=== PATIENT | female | born 1970 | race Caucasian/White ===

== ENCOUNTER 2021-04-08 06:17 | Emergency (ER) | payer BC ==
[~2021-04-08] VITALS: Ht 177.8 cm; Wt 68.0 kg
[2021-04-08] MEDS ORDERED: TRAZ100 PO (06:48)
[2021-04-08] MEDS ORDERED: ESCI20 PO (06:48)
[2021-04-08] MEDS ORDERED: NEURONTIN300 MG PO (06:49)
[2021-04-08] MEDS ORDERED: GABA100 PO (06:50)
[2021-04-08 07:03] LABS: BASOPHILS ABSOLUTE AUTO 0.08 K/mm3 (0.00-0.23); BASOPHILS PERCENT AUTO 2 % (0-2); EOSINOPHILS ABSOLUTE AUTO 0.28 K/mm3 (0.00-0.68); EOSINOPHILS PERCENT AUTO 9 % (0-6); Hematocrit 39.1 % (33.0-51.0); Hemoglobin 12.7 g/dL (11.5-16.0); IMMATURE GRAN ABSOLUTE AUTO 0.01 K/mm3 (0.00-0.10); IMMATURE GRAN PERCENT AUTO 0 % (0-1); LYMPHOCYTES ABSOLUTE AUTO 1.18 K/mm3 (0.84-5.20); LYMPHOCYTES PERCENT AUTO 36 % (21-46); MONOCYTES ABSOLUTE AUTO 0.43 K/mm3 (0.16-1.47); MONOCYTES PERCENT AUTO 13 % (4-13); Mean Corpuscular HGB 28.8 pg (26.0-34.0); Mean Corpuscular HGB Conc 32.5 g/dL (31.5-36.5); Mean Corpuscular Volume 89 fL (80-100); Mean Platelet Volume 9.3 fL (9.1-12.4); NEUTROPHILS ABSOLUTE AUTO 1.29 K/mm3 (1.96-9.15); NEUTROPHILS PERCENT AUTO 40 % (41-73); Platelet Count 222 K/mm3 (150-400); RDW Coefficient Variation 13.2 % (11.7-14.2); RDW Standard Deviation 42.8 fL (35.1-46.3); Red Blood Cell Count 4.41 M/mm3 (3.80-5.20); White Blood Cell Count 3.27 K/mm3 (4.00-11.30)
[2021-04-08 07:22] LABS: Alanine Aminotransfer (ALT/SGP 18 U/L (12-78); Albumin, Blood 3.5 g/dL (3.4-5.0); Albumin/Globulin Ratio 0.9 (0.8-1.8); Alk Phos 41 U/L (50-136); Anion Gap 4 mmol/L (6-16); Aspartate Aminotrans (AST/SGOT 21 U/L (12-37); Bilirubin, Total 0.2 mg/dL (0.1-1.0); Blood Urea Nitrogen 9 mg/dL (8-24); Bun/Creatinine Ratio 8.7 (12.0-20.0); CO2, Blood 29 mmol/L (21-32); Chloride, Blood 105 mmol/L (98-108); Creatinine, Blood 1.04 mg/dL (0.40-1.00); Globulin, Blood 3.7 g/dL (2.2-4.0); Glomerular Filtration Rate 59 (60-); Glucose, Blood 90 mg/dL (70-99); Sodium, Blood 138 mmol/L (136-145); Total Protein, Blood 7.2 g/dL (6.4-8.2); Troponin I <0.015 ng/mL (0.000-0.040)
== END 2021-04-08 10:25 | disposition home or self-care (01) ==
LOC: ER 06:17
PROVIDERS: Emergency Medicine
DX: R07.9 Chest pain, unspecified (principal); R00.1 Bradycardia, unspecified; Z88.1 Allergy status to other antibiotic agents; Z79.899 Other long term (current) drug therapy
CPT/HCPCS: 36415; 71045; 80053; 84484; 85025; 93005; 93010; 99284-25

== ENCOUNTER 2021-07-06 07:41 | Day surgery (SDC) | payer BC ==
[~2021-07-06 07:41] MED LIST: ESCI20 PO; GABA100 PO; NEURONTIN300 MG PO; TRAZ100 PO
[2021-07-09] MEDS ORDERED: VAZALORE81 MG PO (16:50)
[2021-07-09] MEDS ORDERED: ZYRTEC10 M2 PO (16:51)
[2021-07-09] MEDS ORDERED: Naltrexone HCl50 MG PO (17:07)
[2021-07-09] MEDS ORDERED: PROG100 PO (17:07)
[2021-07-09] MEDS ORDERED: HYDSUL200 PO (17:10)
== END 2021-07-06 23:00 | disposition home or self-care (01) ==
LOC: ORSCMMR 07:41 → ORD 07:41 → CT 07:41 → ORSCMMR 07:42 → CT 08:00 → ORSCMMR 23:00
DX: R07.9 Chest pain, unspecified (principal); R06.02 Shortness of breath; R00.1 Bradycardia, unspecified; Q24.5 Malformation of coronary vessels; E78.5 Hyperlipidemia, unspecified; Z86.19 Personal history of other infectious and parasitic diseases; Z88.1 Allergy status to other antibiotic agents
CPT/HCPCS: 75574; Q9967

== ENCOUNTER 2021-07-12 06:37 | Day surgery (SDC) | payer BC ==
[~2021-07-12] VITALS: Ht 177.8 cm; Wt 69.0 kg
[~2021-07-12 06:37] MED LIST changes: +HYDSUL200 PO; +Naltrexone HCl50 MG PO; +PROG100 PO; +VAZALORE81 MG PO; +ZYRTEC10 M2 PO
--- NOTE | 2021-07-12 09:29 | NUR ---
PT RETURNED TO RECOVERY ROOM IN BED. RIGHT FEMORAL SITE SOFT NON-TENDER WITH NO HEMATOMA, NO PULSATILE BLEEDING WITH INTACT DRESSING WITH SLIGHT TRACK OOZING. PT DENIES CHEST PAIN; R PT PULSE DOPPLER. CALL LIGHT IN REACH. PT TALKING WITH DR LOCKWOOD.
--- NOTE | 2021-07-12 10:06 | NUR ---
DR LOCKWOOD IN ROOM TO SEE PT. DR LOCKWOOD ASSESSED R FEM SITE AND STATED SITE IS GOOD.
[2021-07-12] MEDS ORDERED: Aspir 8181 MG PO (10:25)
--- NOTE | 2021-07-12 12:54 | NUR ---
DISCHARGE INSTRUCTIONS REVIEWED ALL QUESTIONS ANSWERED.
--- NOTE | 2021-07-12 13:12 | NUR ---
PT AMBULATED TO BR TO VOID. NO CHANGES TO R FEMORAL GROIN SITE; SOFT WITH NO HEMATOMA, NO PULSATILE BLEEDING AND INTACT DRESSING. 20 G IV DISCONTINUED FROM R AC WITH INTACT CANNULA. PT ESCORTED OUT VIA WHEELCHAIR ESCORT.
== END 2021-07-12 13:10 | disposition home or self-care (01) ==
LOC: MHTC 06:37
DX: R07.89 Other chest pain (principal); R06.00 Dyspnea, unspecified; E78.5 Hyperlipidemia, unspecified; Z88.8 Allergy status to other drugs, medicaments and biological substances
CPT/HCPCS: 93458; 93567; 99152; 99153; C1760; C1769; C1894; J1644; J2250; J3010; J7030; J7050; Q9967

== ENCOUNTER 2021-07-13 05:05 | Emergency (ER) | payer BC ==
[~2021-07-13] VITALS: Ht 177.8 cm; Wt 68.0 kg
[~2021-07-13 05:05] MED LIST changes: +Aspir 8181 MG PO
[2021-07-13 05:30] LABS: Calcium, Ionized (POC) 1.11 mmol/L (1.10-1.46); Chloride (POC) 105 mmol/L (98-108); Creatinine (POC) 1.1 mg/dL (0.6-1.0); Glucose (ISTAT POC) 115 mg/dL (70-99); Hemoglobin (POC) 11.2 g/dL (12.0-16.0); Sodium (POC) 139 mmol/L (135-148); Total CO2 (POC) 24 mmol/L (21-32)
== END 2021-07-13 08:12 | disposition home or self-care (01) ==
LOC: ER 05:05
PROVIDERS: Emergency Medicine
DX: L76.32 Postprocedural hematoma of skin and subcutaneous tissue following other procedure (principal); R55 Syncope and collapse; G43.909 Migraine, unspecified, not intractable, without status migrainosus; J45.909 Unspecified asthma, uncomplicated; Z88.8 Allergy status to other drugs, medicaments and biological substances; Z79.899 Other long term (current) drug therapy; Z79.82 Long term (current) use of aspirin
CPT/HCPCS: 80047; 85014; 93926; 99284-25

== ENCOUNTER → 2022-08-08 | Outpatient (CLI) | payer BC | END | disposition home or self-care (01) | LOC: LAB SHORT 15:11 → LAB 15:11 | DX: R39.15 Urgency of urination (principal) | CPT/HCPCS: 87077; 87086; 87186 ==

== ENCOUNTER 2023-07-11 09:57 | Day surgery (SDC) | payer BC ==
[~2023-07-11] VITALS: Ht 177.8 cm; Wt 66.5 kg
[2023-07-11] MEDS ORDERED: CETI5 (10:30)
[2023-07-11] MEDS ORDERED: DOXE10 (10:30)
[2023-07-11] MEDS ORDERED: PRED1 (10:30)
[2023-07-11] MEDS ORDERED: CLINDAMYCIN HCL75 MG (10:31)
[2023-07-11] MEDS ORDERED: MINOCYCLINE (10:31)
[2023-07-11] MEDS ORDERED: METR250 (10:31)
[2023-07-11] MEDS ORDERED: FISH OIL 1,2001 EAC7 (10:31)
[2023-07-11 11:20] VITALS: BP 116/88
== END 2023-07-11 11:20 | disposition home or self-care (01) ==
LOC: ORSCSDS 09:57
PROVIDERS: Internal Medicine Gastroenterology
PROC: 0DJD8ZZ Inspection of Lower Intestinal Tract, Via Natural or Artificial Opening Endoscopic (ICD-10-PCS; principal; 2023-07-11 12:00)
DX: Z12.11 Encounter for screening for malignant neoplasm of colon (principal); Z79.899 Other long term (current) drug therapy
CPT/HCPCS: J2704; J7120

== ENCOUNTER 2023-10-29 16:27 | Emergency (ER) | payer BC ==
[~2023-10-29] VITALS: Ht 177.8 cm; Wt 68.0 kg
[~2023-10-29 16:27] MED LIST changes: +CETI5; +CLINDAMYCIN HCL75 MG; +DOXE10; +FISH OIL 1,2001 EAC7; +METR250; +MINOCYCLINE; +PRED1
[2023-10-29 16:54] VITALS: BP 156/114
== END 2023-10-29 19:30 | disposition home or self-care (01) ==
LOC: ER 16:27
DX: S61.211A Laceration without foreign body of left index finger without damage to nail, initial encounter (principal); W26.0XXA Contact with knife, initial encounter; Z88.1 Allergy status to other antibiotic agents; Z79.899 Other long term (current) drug therapy
CPT/HCPCS: 12002; 99282-25